=== PATIENT | female | born 1985 | race Caucasian/White ===

== ENCOUNTER 2021-02-23 10:18 | Inpatient (IN) | payer OTHER ==
[2021-02-23] MEDS ORDERED: BETAMET ACET/BETAMET NA PH 30 MG/5 ML VIAL ONE (10:45)
[2021-02-23] MEDS ORDERED: BETAMET ACET/BETAMET NA PH 30 MG/5 ML VIAL IM SCH (10:55)
[2021-02-23] MEDS ORDERED: DEXTROSE 5%-LACTATED RINGERS 1,000 ML IV SCH (11:00)
[2021-02-23 11:37] VITALS: BMI 28.5
[2021-02-23 11:41] LABS: BASO % 0.2 % (0-2.0); EOS % 1.1 % (0-4.5); HEMATOCRIT 35.7 % (32.4-45.2); HEMOGLOBIN 12.1 GM/dL (10.7-15.3); LYMPH % 11.5 % (8-40); MCHC 33.9 g/dl (32.0-36.0); MEAN CELL VOLUME 97.1 fl (80-96); MEAN PLT VOLUME 9.6 fl (7.5-11.1); MONO % 6.8 % (3.8-10.2); NEUT % 80.4 % (42.8-82.8); PLATELET COUNT 205 K/MM3 (134-434); RBC 3.68 M/mm3 (3.60-5.2); RDW 13.6 % (11.6-15.6)
[2021-02-23 11:49] LABS: INR 0.96 (0.83-1.09); PROTHROMBIN TIME (PATIENT) 11.8 SEC (9.7-13.0)
[2021-02-23 11:52] LABS: ACTIVATED PTT 26.2 SECONDS (25.2-36.5)
[2021-02-23 12:08] LABS: CALCIUM 8.7 mg/dL (8.5-10.1)
[2021-02-23 12:09] LABS: BLOOD UREA NITROGEN 10.9 mg/dL (7-18)
[2021-02-23 12:13] LABS: CREATININE 0.4 mg/dL (0.55-1.3)
[2021-02-23 13:03] LABS: HIV INTERPRETATION NEGATIVE (NEGATIVE)
[2021-02-23 13:23] VITALS: BP 123/87; PULSE 74; TEMP 97.9
== END 2021-02-23 13:15 | disposition short-term general hospital (02) | DRG 566 ==
LOC: JLDR 10:18
PROVIDERS: ADMIT Specialist; ATTEND Specialist
DX: O41.03X0 Oligohydramnios, third trimester, not applicable or unspecified (principal); O36.5930 Maternal care for other known or suspected poor fetal growth, third trimester, not applicable or unspecified; Z3A.32 32 weeks gestation of pregnancy
CPT/HCPCS: 36415; 80048; 85025; 85610; 85730; 86780; 86850; 86900; 86901; 87389; 96372; C9803; U0003; U0005

== ENCOUNTER 2021-03-09 15:30 | Inpatient (IN) | payer OTHER ==
[~2021-03-09 15:30] MED LIST: DEXTROSE 5%-LACTATED RINGERS 1,000 ML IV SCH; LABETALOL HCL 200 MG TABLET (FP) PO ONE
[2021-03-09] MEDS ORDERED: LABETALOL HCL 200 MG TABLET (FP) ONE (16:21)
[2021-03-09 16:32] VITALS: TEMP 98.2; BMI 26.5
[2021-03-09 16:42] LABS: BASO % 0.5 % (0-2.0); EOS % 1.9 % (0-4.5); HEMOGLOBIN 12.9 GM/dL (10.7-15.3); LYMPH % 21.3 % (8-40); MCH 32.8 pg (25.7-33.7); MCHC 33.9 g/dl (32.0-36.0); MEAN CELL VOLUME 96.7 fl (80-96); MEAN PLT VOLUME 7.8 fl (7.5-11.1); MONO % 6.1 % (3.8-10.2); NEUT % 70.2 % (42.8-82.8); PLATELET COUNT 288 K/MM3 (134-434); RBC 3.93 M/mm3 (3.60-5.2); RDW 13.4 % (11.6-15.6); WHITE BLOOD COUNT 8.6 K/mm3 (4.0-10.0)
[2021-03-09 16:44] LABS: RETICULOCYTES 0.98 % (0.5-1.5)
[2021-03-09 16:45] LABS: EPI CELLS 15 /uL (0-25.1); HYALINE CASTS 1 /uL (0-3.1); PH,URINE 6.5 (5.0-8.0); URINE APPEARANCE CLEAR; URINE BACTERIA 1722 /uL (0-1359); URINE BILIRUBIN NEGATIVE (NEGATIVE); URINE COLOR YELLOW; URINE GLUCOSE (UA) NEGATIVE (NEGATIVE); URINE KETONE NEGATIVE (NEGATIVE); URINE LEUK ESTERASE 2+ (NEGATIVE); URINE NITRITE NEGATIVE (NEGATIVE); URINE PROTEIN NEGATIVE (NEGATIVE); URINE RBC 8 /uL (0-23.9); URINE UROBILINOGEN 0.2 mg/dL (0.2-1.0); URINE WBC 124 /uL (0-25.8)
[2021-03-09 16:48] LABS: INR 1.09 (0.83-1.09); PROTHROMBIN TIME (PATIENT) 13.4 SEC (9.7-13.0)
[2021-03-09 16:50] LABS: ACTIVATED PTT 30.6 SECONDS (25.2-36.5)
[2021-03-09 17:11] LABS: CALCIUM 9.2 mg/dL (8.5-10.1)
[2021-03-09 17:12] LABS: ALBUMIN 3.5 g/dl (3.4-5.0); BLOOD UREA NITROGEN 16.5 mg/dL (7-18)
[2021-03-09 17:14] LABS: URIC ACID 4.1 mg/dL (2.6-7.2)
[2021-03-09 17:15] LABS: CREATININE 0.5 mg/dL (0.55-1.3)
[2021-03-09 17:16] LABS: BILIRUBIN,TOTAL 0.6 mg/dL (0.2-1)
[2021-03-09] MEDS ORDERED: ACETAMINOPHEN 1000 MG/100 ML VIAL (NON FORMULARY) IVPB ONE (17:29)
[2021-03-09] MEDS ORDERED: DEXTROSE 5%-LACTATED RINGERS 1,000 ML IV SCH (17:30)
[2021-03-09] MEDS ORDERED: ACETAMINOPHEN INJECTION 100 ML IVPB ONE (17:33)
[2021-03-09 17:46] LABS: TOT PROT 7.1 g/dl (6.4-8.2)
[2021-03-09 18:48] VITALS: PULSE 97
[2021-03-09 19:36] VITALS: BP 121/84
== END 2021-03-09 19:50 | disposition home or self-care (01) | DRG 561 ==
LOC: JLDR 15:30
PROVIDERS: ADMIT Specialist; ATTEND Specialist
DX: O16.5 Unspecified maternal hypertension, complicating the puerperium (principal); R51.9 Headache, unspecified
CPT/HCPCS: 36415; 80053; 81003; 82570; 82977; 83010; 84156; 84550; 85025; 85032; 85045; 85610; 85730; 86780; 86850; 86900; 86901; C9803; J0131; U0003; U0005